=== PATIENT | female | born 1935 | race Caucasian/White ===

== ENCOUNTER → 2017-01-26 | Outpatient (CLI) | payer MEDICARE, BC ==
[~2017-01-26] MED LIST: ASPIRIN PO; CALCIUM 250+D T1 TAB PO; CALCIUM/MAG/ZINC PO; CARTIA XT PO; CERTAGEN PO; CRANBERRY FRUIT PO; DIOVAN PO; DIURIL PO; GLUCOSAMINE PO; LIMBITROL PO; PERSANTINE PO; SYNTHROID PO; UROCIT K PO; VIT B-12 PO; VIT E PO; VITAMIN B-6 PO; ZOCOR PO
--- NOTE | ~2017-01-26 | TH ---
Unit #: [id number] #: [id number] Patient: LINDSEY AYALA [id number] [address] [address] [id number] O MR#: [id number] NAME: LINDSEY AYALA : 1935 SEX: F STUDY DATE/TIME: 01/26/2017 UNIT: [facility] ROOM: STUDY DESCRIPTION: Attending Physician: Cipriano Adams M.D. Referring Physician: Cipriano Adams M.D. Primary Care Physician: Cipriano Adams M.D. CARDIOLOGY REPORT EXAM Nuclear study. PROCEDURE This 81-year-old patient received 0.4 mg of Lexiscan intravenously followed by 31.5 mCi of technetium 99m Cardiolite and images were obtained according to standard SPECT protocol. For rest images 11.03 mCi of Cardiolite was injected. Images were reviewed in both phases. FINDINGS Overall study quality is excellent. LV cavity size is normal in both images. There is no lung activity. RV is normal. Rotating raw data showed no significant artifact, soft tissue attenuation, or GI uptake. Review of SPECT images showed a normal homogenous radiotracer concentration throughout the myocardium in both stress and rest images. Gated images showed a normal LV wall thickening and wall motion with an estimated LV ejection fraction of 76%. IMPRESSION 1. Myocardial perfusion imaging is normal. 2. No evidence of ischemia or infarct. 3. Normal LV dimensions. 4. Normal systolic LV function with an estimated LV ejection fraction of 76%. Dictated by... Dirk Barragan/soumya TD: 01/28/2017 15:15 JOB #: [id number] Unit #: [id number] #: [id number] Patient: LINDSEY AYALA CARDIOLOGY REPORT Page 1 of 1 X Kiersten Campos MD CARDIOLOGY REPORT
--- NOTE | ~2017-01-26 | ST ---
Unit #: [id number] #: [id number] Patient: LINDSEY AYALA [id number] [address] [address] [id number] O MR#: [id number] NAME: LINDSEY AYALA : 1935 SEX: F STUDY DATE/TIME: 01/26/2017 UNIT: [facility] ROOM: STUDY DESCRIPTION: Attending Physician: Cipriano Adams M.D. Referring Physician: Cipriano Adams M.D. Primary Care Physician: Cipriano Adams M.D. CARDIOLOGY REPORT EXAM Nuclear study. FINDINGS Baseline EKG: Normal sinus rhythm, minor nonspecific ST-T changes, resting heart rate 59 per minute, blood pressure 183/76. PROCEDURE This 81-year-old patient received 0.4 mg of Lexiscan intravenously. During the test, no ischemic changes noted. No arrhythmias noted. Blood pressure was stable. IMPRESSION 1. Nondiagnostic EKG during Lexiscan. 2. No arrhythmias noted. 3. Stable blood pressure during the test. 4. Correlate with the Cardiolite study. Dictated by... Dirk Barragan/soumya TD: 01/28/2017 15:00 JOB #: [id number] CARDIOLOGY REPORT Page 1 of 1 X Kiersten Campos MD CARDIOLOGY REPORT
--- NOTE | ~2017-01-26 | CR63 ---
[facility] A Service of [facility] & [facility] RADIOLOGY TEXT RESULTS PATIENT: LINDSEY AYALA LOCATION: [facility] : 37 UNIT #: [id number] AGE: [address]: Cipriano Adams MD SEX: F ORDER DR: [id number] [facility] [address] [facility] [place], [place] [address] [id number] O MR#: [id number] Acc #: [id number] NAME: LINDSEY AYALA : 1935 SEX: F STUDY DATE/TIME: 01/26/2017 7:43 UNIT: [facility] ROOM: STUDY DESCRIPTION: CR Chest 2 View Attending Physician: Cipriano Adams M.D. Referring Physician: Cipriano Adams M.D. Ordering Physician: Cipriano Adams M.D. Primary Care Physician: Cipriano Adams M.D. MEDICAL IMAGING REPORT This report is preliminary unless electronic signature is present EXAM PA and lateral chest DATE 01/26/2017 at 07:43 HISTORY 81-year-old female with dyspnea on exertion. Shortness of breath and hypertension for 7-8 months, shortness of breath worse with activity. Former smoker, quit in 1987. COMPARISON AP portable chest 08/06/2016. FINDINGS No acute airspace disease. Normal heart size. Pulmonary vascular distribution is within normal limits. No acute osseous abnormalities are evident. IMPRESSION 1. No acute chest findings. No significant change compared to 08/06/2016. Dictated by... Twila Pearce M.D. THIS IS AN ELECTRONICALLY VERIFIED REPORT Twila Pearce M.D. at 01/26/2017 5:03 PM LL/df TD: 01/26/2017 12:21 JOB #: [id number] MEDICAL IMAGING REPORT [facility] A Service of [facility] & [facility] RADIOLOGY TEXT RESULTS PATIENT: LINDSEY AYALA LOCATION: [facility] : 37 UNIT #: [id number] AGE: [address]: Cipriano Adams MD SEX: F ORDER DR: Page 1 of 1 COPY
== END | disposition home or self-care (01) ==
LOC: CNUC 07:23
DX: R06.09 Other forms of dyspnea (principal); I51.7 Cardiomegaly
CPT/HCPCS: 71020; 78452; 93017; 93306; A9500; J2785